=== PATIENT | female | born 2000 | race Caucasian/White ===

== ENCOUNTER 2021-04-06 00:44 | Emergency (ER) | payer OTHER ==
--- NOTE | 2021-04-06 01:24 | EDM.PDOC ---
ED HPI GENERAL MEDICAL PROBLEM - General Chief Complaint: Upper Extremity Injury/Pain Stated Complaint: left ring finger and pinkie finger pain Time Seen by Provider: 04/06/21 01:05 Source of Information: Reports: Patient History Limitations: Reports: No Limitations - History of Present Illness INITIAL COMMENTS - FREE TEXT/NARRATIVE: Left 4th/5th finger pain after getting them caught between an engine and a wrench while working at [employer]. No numbness/deformity. Treatments [employer]: Reports: Cold Therapy 4th and 5th digit of left hand Pain Score (Numeric/FACES): 6 - Related Data Allergies Allergy/AdvReac Type Severity Reaction Status Date / Time No Known Allergies Allergy Verified 04/06/21 00:48 Home Meds: Home Meds . 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 Neurological History: Reports: Concussion, Migraines - Past Surgical History HEENT Surgical History: Reports: Oral Surgery, Tonsillectomy, Other (See Below) Other HEENT Surgeries/Procedures: wisdom teeth removal Social & Family History - Tobacco Use Tobacco Use Status *Q: Never Tobacco User - Caffeine Use Caffeine Use: Reports: Coffee, Soda - Recreational Drug Use Recreational Drug Use: No Review of Systems - Review of Systems Review Of Systems: See Below Constitutional: Reports: No Symptoms Eyes: Reports: No Symptoms Ears: Reports: No Symptoms Nose: Reports: No Symptoms Cardiovascular: Reports: No Symptoms GI/Abdominal: Reports: No Symptoms Musculoskeletal: Reports: Hand Pain Skin: Reports: No Symptoms Neurological: Reports: No Symptoms Psychiatric: Reports: No Symptoms ED EXAM, GENERAL - Physical Exam Exam: See Below Exam Limited By: No Limitations General Appearance: Alert, WD/WN, No Apparent Distress Eye Exam: Bilateral Eye: EOMI, PERRL Ears: Hearing Grossly Normal Nose: No: Nasal Deformity, Nasal Swelling, Nasal Drainage Throat/Mouth: Normal Lips, Normal Voice, No Airway Compromise Head: Atraumatic, Normocephalic Neck: Supple Respiratory/Chest: No Respiratory Distress Cardiovascular: Normal Peripheral Pulses Extremities: Normal Capillary Refill, Other (Tender with palpation over left 4th and 5th digits. Able to flex/extend. No deformity. No obvius swelling. Skin intact. Hand otherwise nontender.) Neurological: Alert, Oriented, Normal Cognition, No Motor/Sensory Deficits Psychiatric: Normal Affect, Normal Mood Skin Exam: Warm, Dry, Intact, Normal Color Course - Vital Signs Last Recorded V/S: Last Vital Signs Temp 36.8 C 04/06/21 00:45 Pulse 74 04/06/21 00:45 Resp 16 04/06/21 00:45 BP 129/84 04/06/21 00:45 Pulse Ox 97 04/06/21 00:45 - Orders/Labs/Meds Orders: Active Orders 24 hr Category Date Time Status Fingers Fourth Digit Lt F3 [CR] Stat Exams 04/06/21 00:49 Taken - Re-Assessments/Exams Free Text/Narrative Re-Assessment/Exam: 04/06/21 16:22 No noted fracture on xray. Suspect soft tissue injury from crush injury. No work for 48 hours. Rest/ice and OTC pain management. To follow up with clinic/PCP in 2-3 days if continues to be symptomatic and further work restrictions needed. Departure - Departure Time of Disposition: : Disposition: Home, Self-Care 01 Condition: Good Clinical Impression: Crush injury to finger Qualifiers: Encounter type: initial encounter Qualified Code(s): S67.10XA - Crushing injury of unspecified finger(s), initial encounter - Discharge Information *PRESCRIPTION DRUG MONITORING PROGRAM REVIEWED*: Not Applicable *COPY OF PRESCRIPTION DRUG MONITORING REPORT IN PATIENT CINTIA: Not Applicable Instructions: Crush Injury of the Hand, [id number] Referrals: PCP,None [Primary Care Provider] - Forms: ED Department Discharge Additional Instructions: Rest/ice. Tylenol and/or ibuprofen for pain as needed. Return to work night. If you feel like you are unable to be able to return to regular work station get followed up at local clinic for recheck and further restrictions as needed Sepsis Event Note (ED) - Evaluation Sepsis Screening Result: No Definite Risk - My Orders Last 24 Hours: My Active Orders 04/06/21 00:49 Fingers Fourth Digit Lt F3 [CR] Stat - Assessment/Plan Last 24 Hours: My Active Orders 04/06/21 00:49 Fingers Fourth Digit Lt F3 [CR] Stat
== END 2021-04-06 01:32 | disposition home or self-care (01) ==
LOC: LL.ED 00:44
DX: S67.195A Crushing injury of left ring finger, initial encounter (principal); S67.197A Crushing injury of left little finger, initial encounter; W23.0XXA Caught, crushed, jammed, or pinched between moving objects, initial encounter; Y92.89 Other specified places as the place of occurrence of the external cause; Y99.0 Civilian activity done for income or pay
CPT/HCPCS: 73140-F3; 99283

== ENCOUNTER 2023-01-11 16:05 | Emergency (ER) | payer BC ==
[2023-01-11 16:34] LABS: BASOPHILS ABSOLUTE AUTO 0.03 K/uL (0.00-0.20); BASOPHILS PERCENT AUTO 0.3 % (0.0-2.0); EOSINOPHILS ABSOLUTE AUTO 0.14 K/uL (0.00-0.50); EOSINOPHILS PERCENT AUTO 1.4 % (0.0-5.0); HEMATOCRIT 39.2 % (34.0-46.0); HEMOGLOBIN 12.8 g/dL (11.7-15.5); LYMPHOCYTES ABSOLUTE AUTO 2.39 K/uL (0.50-3.50); LYMPHOCYTES PERCENT AUTO 23.3 % (10.0-50.0); MEAN CORPUSCULAR HEMOGLOBIN 28.4 pg (28.2-33.3); MEAN CORPUSCULAR HGB CONC 32.7 g/dL (31.7-36.0); MEAN CORPUSCULAR VOLUME 87.1 fL (84.0-98.0); MONOCYTES ABSOLUTE AUTO 0.91 K/uL (0.00-1.00); MONOCYTES PERCENT AUTO 8.9 % (2.0-14.0); NEUTROPHILS PERCENT AUTO 66.1 % (45.0-80.0); PLATELET COUNT,PLT 226 K/uL (150-350); RED CELL DISTRIBUTION WIDTH 15.4 % (11.2-14.1); WHITE BLOOD CELL COUNT,WBC 10.3 K/uL (4.0-10.2)
[2023-01-11 16:45] LABS: ALBUMIN 3.9 g/dL (3.4-5.0); ANION GAP 7.1 meq/L (7-15); BILIRUBIN TOTAL 0.4 mg/dL (0.2-1.0); CALCIUM 9.1 mg/dL (8.5-10.1); CARBON DIOXIDE,CO2 27.9 mmol/L (21.0-32.0); CREATININE 0.83 mg/dL (0.51-1.17); EST CRCL DRUG DOSING (CG) 99.53 mL/min; POTASSIUM,K 3.8 mmol/L (3.5-5.1); PROTEIN TOTAL,TP 7.1 g/dL (6.4-8.2)
[2023-01-11] MEDS ORDERED: Take Home: Cyclobenzaprine 10 MG Tab, 4 Tab Pack PO ONE (17:39)
[2023-01-11] MEDS ORDERED: Take Home: traMADol 50 MG, 4 Tab Pack PO ONE (17:39)
[2023-01-11] MEDS ORDERED: Ketorolac 10 MG Tab PO ONE (17:40)
== END 2023-01-11 17:56 | disposition home or self-care (01) ==
LOC: LL.ED 16:05
DX: R07.89 Other chest pain (principal); Z88.8 Allergy status to other drugs, medicaments and biological substances
CPT/HCPCS: 36415; 71100-LT; 80053; 84703; 85025; 85379; 99283; 99284; A9270-GY